=== PATIENT | female | born 1980 | race Caucasian/White ===

== ENCOUNTER 2019-05-20 13:45 | Day surgery (SDC) | payer MEDICAID ==
[~2019-05-20] VITALS: Ht 165.1 cm; Wt 78.4 kg
[~2019-05-20 13:45] MED LIST: BUPIVACAINE/PF 0.5% ONE; CEFAZOLIN 1,000 MG ONE; DEXAMETHASONE 4 MG/ML, 1ML ONE; FENTANYL PF 100 MCG/2ML ONE; HYDR-3653 PO; LIDOCAINE-MPF 2% ,5ML ONE; MIDAZOLAM 1 MG/ML, 2ML ONE; NAPR-856 PO; NONE PER PT; PROPOFOL 10 MG/ML, 20ML ONE; SUCCINYLCHOLINE 20 MG/ML, 10ML ONE
[2019-05-20] MEDS ORDERED: FENTANYL PF 250 MCG/5ML ONE (13:56)
[2019-05-20] MEDS ORDERED: MIDAZOLAM 1 MG/ML, 2ML ONE (13:56)
[2019-05-20 14:04] VITALS: BP 109/72
[2019-05-20] MEDS ORDERED: LACTATED RINGERS 1,000 ML IV SCH (14:08)
[2019-05-20] MEDS ORDERED: ONDANSETRON ODT 8 MG PO ONE (14:30)
[2019-05-20] MEDS ORDERED: GABAPENTIN 300 MG CAPSULE PO ONE (14:30)
[2019-05-20 14:34] LABS: HCG UR SG 1.032 (1.003-1.030)
[2019-05-20] MEDS ORDERED: LIDOCAINE 1%, 20ML ONE (14:38)
[2019-05-20] MEDS ORDERED: BUPIVACAINE/PF 0.5% ONE (14:38)
[2019-05-20] MEDS ORDERED: ACETAMINOPHEN 500 MG TABLET PO ONE (15:00)
[2019-05-20] MEDS ORDERED: SCOPOLAMINE PATCH, 1.5MG PATCH.TD72 TD ONE (15:00)
[2019-05-20] MEDS ORDERED: ONDANSETRON 2MG/ML, 2ML IV PRN (16:00)
[2019-05-20] MEDS ORDERED: ONDANSETRON ODT 8 MG PO PRN (16:00)
[2019-05-20] MEDS ORDERED: OXYcodone 5 MG/5 ML ORAL.SOL UDC PO PRN (16:00)
[2019-05-20] MEDS ORDERED: FENTANYL PF 100 MCG/2ML IV PRN (16:00)
[2019-05-20] MEDS ORDERED: HYDROmorphone 2 MG/ML, 1ML IVPush PRN (16:00)
[2019-05-20] MEDS ORDERED: PROMETHAZINE 25 MG/ML, 1ML IV PRN (16:00)
[2019-05-20] MEDS ORDERED: DIAZEPAM 5 MG/ML, 2ML IVPush PRN (16:00)
[2019-05-20] MEDS ORDERED: FENTANYL PF 100 MCG/2ML ONE (16:42)
[2019-05-20] MEDS ORDERED: PROPOFOL 10 MG/ML, 20ML ONE (16:46)
[2019-05-20] MEDS ORDERED: DEXAMETHASONE 4 MG/ML, 1ML ONE (16:46)
[2019-05-20] MEDS ORDERED: ONDANSETRON 2MG/ML, 2ML ONE (16:46)
[2019-05-20] MEDS ORDERED: CEFAZOLIN 1,000 MG ONE (16:46)
== END 2019-05-20 18:05 | disposition home or self-care (01) ==
LOC: OR 13:45
PROVIDERS: ATTEND Orthopaedic Surgery
DX: M19.071 Primary osteoarthritis, right ankle and foot (principal); M24.671 Ankylosis, right ankle; M65.871 Other synovitis and tenosynovitis, right ankle and foot; M25.771 Osteophyte, right ankle; M25.871 Other specified joint disorders, right ankle and foot; Z79.1 Long term (current) use of non-steroidal anti-inflammatories (NSAID); Z87.891 Personal history of nicotine dependence; Z88.5 Allergy status to narcotic agent; Z82.61 Family history of arthritis; Z82.49 Family history of ischemic heart disease and other diseases of the circulatory system
CPT/HCPCS: 27635; 28120; 29898; 64445; 64447; 81025; J0690; J1100; J2250; J2405; J2704; J3010; J7120; J0330